=== PATIENT | female | born 1970 ===

== ENCOUNTER 2022-03-17 20:43 | Observation (INO) ==
[2022-03-17] MEDS ORDERED: Nitroglycerin 0.4 MG TAB.SUBL SL PRN (21:07)
[2022-03-17 21:26] LABS: Basophils % 0.6 %; Eosinophils # 0.1 K/mcL (0.0-0.6); Hematocrit 40.8 % (35.3-44.9); Hemoglobin 13.4 g/dL (11.5-15.4); Immature Granulocytes % 0.1 % (0-4); Mean Corpuscular HGB Conc 32.8 g/dL (31.6-35.5); Mean Corpuscular Hemoglobin 29.6 pg (28.0-33.3); Mean Corpuscular Volume 90.3 fL (83.0-100.0); Mean Platelet Volume 10.3 fL (9.4-12.4); Monocytes # 0.6 K/mcL (0.0-1.3); Monocytes % 8.4 %; Neutrophils # 3.2 K/mcL (1.6-8.9); Platelet Count 261 K/mcL (140-400); Red Blood Count 4.52 M/mcL (3.82-4.97); Red Cell Distribution Width 13.2 % (11.5-14.5); Segmented Neutrophils % 46.9 %; White Blood Count 6.9 K/mcL (4.3-11.1)
[2022-03-17 21:33] LABS: Prothrombin Time 10.8 Seconds (9.4-12.1)
[2022-03-17 21:35] LABS: Activated Partial Thrombo Time 35.3 Seconds (26.0-36.0)
[2022-03-17 21:44] LABS: Alanine Aminotransferase 11 Units/L (7-52); Albumin 4.1 g/dL (3.5-5.7); Albumin/Globulin Ratio 1.2 (1.1-2.2); Alkaline Phosphatase 87 Units/L (34-104); Aspartate Amino Transferase 22 Units/L (13-39); BUN/Creatinine Ratio 18 (6-26); Bilirubin,Indirect 0.3 mg/dL (0.0-1.0); Bilirubin,Total 0.3 mg/dL (0.3-1.0); Blood Urea Nitrogen 15 mg/dL (6-20); Calcium 9.3 mg/dL (8.6-10.3); Carbon Dioxide 26 mEq/L (23-29); Chloride 103 mEq/L (98-107); Globulin 3.3 g/dL (2.4-3.5); Glucose 80 mg/dL (70-105); Lipase 50 Units/L (11-82); Osmolality,Calculated 284 (280-300); Potassium 3.4 mEq/L (3.5-5.1); Sodium 137 mEq/L (136-145); Total Protein 7.4 g/dL (6.4-8.9); Troponin I < 0.03 ng/mL (< 0.04)
[2022-03-17] MEDS ORDERED: Iopamidol - 370 500 ML MLS IVP ONE (22:48)
[2022-03-18] MEDS ORDERED: *HR* Labetalol 20 MG/4 ML SYRINGE IVP STA (01:34)
[2022-03-18] MEDS ORDERED: Ondansetron 4 MG/2 ML VIAL IVP PRN (02:02)
[2022-03-18] MEDS ORDERED: Naloxone 0.4 MG/ML INJ IVP PRN (02:02)
[2022-03-18] MEDS ORDERED: Acetaminophen 325 MG TABLET PO PRN (02:02)
[2022-03-18] MEDS ORDERED: Acetaminophen IV 1,000 MG/100 ML BAG IVPB ONE (02:37)
[2022-03-18 04:43] VITALS: O2SAT 98
[2022-03-18] MEDS ORDERED: 0.9 % Sodium Chloride 250 ML IVC ONE (06:23)
[2022-03-18] MEDS ORDERED: *HR* Enoxaparin 40 MG/0.4 ML SYRINGE SQ SCH (07:00)
[2022-03-18] MEDS ORDERED: Regadenoson 0.4 MG/5 ML SYRINGE IVP ONE (08:42)
[2022-03-18 10:43] VITALS: BP 139/89; PULSE 82; TEMP 98.3
[2022-03-18] MEDS ORDERED: amLODIPine 5 MG TABLET PO SCH (11:15)
== END 2022-03-18 14:58 | disposition home or self-care (01) ==
LOC: EMEROOARM 20:43 → 3BNU 20:43 → SUATTDRO 03-18 07:41 → 3BNU 03-18 08:30
PROVIDERS: ADMIT Internal Medicine; ATTEND Family Medicine